=== PATIENT | male | born 1995 | race African-American/Black ===

== ENCOUNTER 2016-11-20 19:53 | Emergency (ER) | payer OTHER ==
[2016-11-20] MEDS ORDERED: oxyCODONE/Acetamin 5/325 MG* TAB PO ONE (20:10)
--- NOTE | 2016-11-20 20:28 | RAD ---
INDICATION: Fall. Intracranial injury COMPARISON: None TECHNIQUE: Noncontrast axial source images were acquired from the skull base to the vertex. FINDINGS: Ventricles/sulci: The ventricles and cisterns are normal in size and configuration for age. Brain parenchyma: There is no focal parenchymal finding, evidence of intracranial mass, or intracranial mass effect. Intracranial hemorrhage:None. Extra-axial spaces: There are no abnormal extra axial fluid collections or evidence of extra-axial mass. Calvarium: There is no calvarial fracture or other calvarial abnormality. Scalp: There is a right parietal scalp hematoma. Paranasal sinuses/mastoid: The paranasal sinuses and mastoid air cells are clear. Other: None. IMPRESSION: No acute intracranial findings.
--- NOTE | 2016-11-20 20:29 | RAD ---
INDICATION: Fall. Neck pain COMPARISON: None TECHNIQUE: Noncontrast axial source images was performed from the skull base to the thoracic inlet. Coronal and and sagittal reformatted images were generated. FINDINGS: Vertebrae: There is no fracture or acute focal bony lesion. Alignment: The craniocervical junction appears normal. The cervical vertebrae are normally aligned. Central Canal: There are no significant CT abnormalities of the central canal or foramina. MR imaging is a more sensitive method to evaluate the canal and foramina. Intervertebral disc spaces: The disc spaces are maintained. Brain: The visualized brain appears unremarkable. Soft tissues: The visualized soft tissue elements of the neck are unremarkable. The prevertebral soft tissues appear normal. The lung apices are clear. IMPRESSION: NEGATIVE EXAMINATION.
--- NOTE | 2016-11-20 21:21 | RAD ---
INDICATION: Right shoulder injury COMPARISON: None TECHNIQUE: Routine frontal and Y views were obtained. FINDINGS: The bony structures, joint spaces, and soft tissues are normal for age. IMPRESSION: NEGATIVE EXAMINATION.
--- NOTE | 2016-11-20 21:21 | RAD ---
INDICATION: Right forearm injury COMPARISON: None TECHNIQUE: AP and lateral views were obtained. FINDINGS: The bony structures, joint spaces, and soft tissues are normal for age. IMPRESSION: NEGATIVE EXAMINATION
--- NOTE | 2016-11-20 21:21 | RAD ---
INDICATION: Right elbow injury COMPARISON: None TECHNIQUE: AP, lateral, and oblique views were obtained. FINDINGS: The bony structures, joint spaces, and soft tissues are normal for age. IMPRESSION: NEGATIVE EXAMINATION.
[2016-11-20 22:00] VITALS: BP 140/71
--- NOTE | 2016-11-20 22:30 | ED ---
Head Injury - HPI Summary HPI Summary: Patient arrives with 2 guards from [facility] after slipping and falling in the shower and hitting his head, back and right arm. On arrival he is in a cervical spine collar and right arm splint. He notes to neck pain and head pain as well as right shoulder, elbow and forearm pain on arrival. He denies LOC, memory loss or confusion. Pain is 9/10 and discrete to his right arm, his posterior spine and head. He does not know exactly where he hit his head. He thinks he fell onto his elbow. Denies known abrasions, lacerations or other open wounds. Denies previous injury to the neck, back and arm. Patient denies other complaints. Denies other health history. Takes no medications. - History Of Current Complaint Chief Complaint: EDGeneral Stated Complaint: FALL Time Seen by Provider: 11/20/16 20:00 Hx Obtained From: Patient Mechanism Of Injury: Fall From A Standing Position Onset/Duration: Started Hours Ago Onset of Pain: Immediate Severity Currently: Moderate Severity Initially: Moderate Pain Intensity: 8 Pain Scale Used: 0-10 Numeric Location of Head Injury: Other: - unknown Character: Sharp, Throbbing Aggravating Factor(s): Movement Alleviating Factor(s): Rest Associated Signs And Symptoms: Neck Pain - Risk Factors SDH Risk Factor: Male Risk Factors For Cervical Spine Injury: Posterior Midline Cervical Spine Tenderness - over C2 - Allergies/Home Medications Allergies/Adverse Reactions: Allergies Allergy/AdvReac Type Severity Reaction Status Date / Time No Known Allergies Allergy Verified 11/20/16 20:05 PMH/Surg Hx/FS Hx/Imm Hx Previously Healthy: Yes - Immunization History Immunizations Up to Date: Unable to Obtain/Confirm Infectious Disease History: No Infectious Disease History: Denies: Traveled Outside the [place] in Last 30 Days - Social History Occupation: Unemployed Lives: Alone - correctional facility Alcohol Use: None Hx Substance Use: Yes Substance Use Type: Reports: Marijuana Hx Tobacco Use: No Smoking Status (MU): Never Smoked Tobacco Do You Chew or Dip Tobacco: No Have You Chewed or Dipped Tobacco in the LAST YEAR: No Review of Systems Constitutional: Negative ENT: Negative Cardiovascular: Negative Respiratory: Negative Positive: no symptoms reported, see HPI Positive: Arthralgia, Myalgia - pain on palpation over posterior midline spine at C2-C4, pain over right shoulder with passive abduction and adduction of joint , neer test positive, empty can positive, right elbow with pain during flexion and extension. Pain on palpation over right forearm. No pain on palpation over wrist. Skin: Negative Positive: Headache Psychological: Normal All Other Systems Reviewed And Are Negative: Yes Physical Exam Triage Information Reviewed: Yes Vital Signs On Initial Exam: Initial Vitals Temp Pulse Resp BP Pulse Ox 98.6 F 93 22 143/65 96 11/20/16 19:55 11/20/16 19:55 11/20/16 19:55 11/20/16 19:55 11/20/16 19:55 Vital Signs Reviewed: Yes Appearance: Positive: Well-Appearing, Pain Distress Skin: Positive: Warm Eyes: Positive: EOMI, KAYLEIGH Neck: Positive: Nontender, No Lymphadenopathy Cardiovascular: Positive: Normal, RRR Musculoskeletal: Positive: Other - pain on palpation over posterior midline spine at C2-C4, pain over right shoulder with passive abduction and adduction of joint, neer test positive, empty can positive, right elbow with pain during flexion and extension. Pain on palpation over right forearm. No pain on palpation over wrist. Neurological: Positive: Sensory/Motor Intact, Normal Gait, Speech Normal Psychiatric: Positive: Normal AVPU Assessment: Alert - Obi Coma Scale Coma Scale Total: 15 Diagnostics - Vital Signs Vital Signs Temp Pulse Resp BP Pulse Ox 11/20/16 22:00 99.1 F 83 20 140/71 96 11/20/16 20:01 98.6 F 89 18 143/65 97 11/20/16 19:55 98.6 F 93 22 143/65 96 - Laboratory Lab Statement: Any lab studies that have been ordered have been reviewed, and results considered in the medical decision making process. Head Injury Course/Dx Course Of Treatment: CT brain, CT cervical spine, Xray shoulder, Xray elbow, Xray forearm all negative. 10mg Percoset given. Patient feeling better on discharge. Elbow still painful. Provider encouraged Ibuprofen 600mg three times daily with meals. Patient concerned if pain does not dissipate, how to receive better imaging. Provider communicated to patient if symptoms persist or do not improve, able to come back to ED for further evaluation, but pain will persist for several days to a few weeks d/t contusion on the elbow. Patient voiced understanding. - Diagnoses Differential Diagnosis/HQI/PQRI: Cervical Sprain, Concussion Without LOC, Contusion Provider Diagnoses: Contusion, elbow, with forearm, Head injury Discharge - Discharge Plan Condition: Stable Disposition: HOME Prescriptions: Ibuprofen TAB* [Motrin TAB* 600 MG] 600 mg PO Q8H PRN #24 tab MDD 3 PRN Reason: Pain Patient Education Materials: Contusion in Adults (ED) Referrals: No Primary Care Phys,NOPCP [Primary Care Provider] - Additional Instructions: Take 600mg Ibuprofen three times daily with meals as needed for pain and inflammation. You have been diagnosed with a contusion. All imaging taken at this time was negative for a fracture or any acute findings. If symptoms do not improve in 1 week, come back to ED for further imaging or see you primary care physician. You will be sore for awhile as this may take awhile to heal.
== END 2016-11-20 22:00 | disposition home or self-care (01) ==
LOC: ED 19:53
DX: S50.01XA Contusion of right elbow, initial encounter (principal); S09.90XA Unspecified injury of head, initial encounter; S50.11XA Contusion of right forearm, initial encounter; R51 Headache; W19.XXXA Unspecified fall, initial encounter; Y93.9 Activity, unspecified; Y92.9 Unspecified place or not applicable
CPT/HCPCS: 70450; 72125; 99282; A9270-GY

== ENCOUNTER 2016-11-21 23:54 | Emergency (ER) | payer OTHER ==
[2016-11-22] MEDS ORDERED: Ketorolac INJ* 60 MG/2 ML VIAL IM ONE (00:46)
--- NOTE | 2016-11-22 00:47 | ED ---
Kayode Miranda Adam, scribed for Juwan Dill MD on 11/22/16 at 0028 . HPI Chest Pain - HPI Summary HPI Summary: Pt is a 21 year old male brought in from a correctional facility with CP. He describes it as a pressure that set on at 22:00. He has not taken anything for the pain. The pt slipped and fell in the shower yesterday and was seen here in the ED shortly afterwards, complaining of pain in his head, neck, shoulder, elbow, and forearm. CT's of his brain and C-spine and X-Rays of his shoulder, elbow, and forearm were all negative. - History of Current Complaint Chief Complaint: EDChestPainROMI Hx Obtained From: Patient Onset/Duration: Started Days Ago, Traumatic, Still Present Timing: Constant Initial Severity: Moderate Current Severity: Moderate Pain Intensity: 5 Pain Scale Used: 0-10 Numeric Chest Pain Location: Discrete at: - Chest, throat, right elbow Aggravating Factor(s): Nothing Alleviating Factor(s): Nothing Associated Signs and Symptoms: Positive: Shortness of Breath - Allergy/Home Medications Allergies/Adverse Reactions: Allergies Allergy/AdvReac Type Severity Reaction Status Date / Time No Known Allergies Allergy Verified 11/20/16 20:05 PMH/Surg Hx/FS Hx/Imm Hx Previously Healthy: Yes - Surgical History Surgery Procedure, Year, and Place: Right metacarpal surgery Infectious Disease History: No Infectious Disease History: Denies: Traveled Outside the [place] in Last 30 Days - Family History Known Family History: Positive: Diabetes - Grandfather, Other - Cancer ( grandfather) - Social History Occupation: Unemployed Lives: Alone - [facility] Alcohol Use: None Hx Substance Use: Yes Substance Use Type: Reports: Marijuana Hx Tobacco Use: No Smoking Status (MU): Never Smoked Tobacco Review of Systems Positive: Chest Pain Positive: Nausea Positive: Arthralgia - Right elbow, Other - Neck pain All Other Systems Reviewed And Are Negative: Yes Physical Exam Triage Information Reviewed: Yes Vital Signs On Initial Exam: Initial Vitals Temp Pulse Resp BP Pulse Ox 99.2 F 68 16 121/79 97 11/22/16 00:13 11/22/16 00:13 11/22/16 00:13 11/22/16 00:13 11/22/16 00:13 Vital Signs Reviewed: Yes Appearance: Positive: Well-Appearing, Pain Distress - mild Skin: Positive: Warm Eyes: Positive: KAYLEIGH ENT: Positive: Hearing grossly normal Neck: Positive: Supple Respiratory/Lung Sounds: Positive: Breath Sounds Present, Other - no cwt tenderness Cardiovascular: Positive: RRR Abdomen Description: Positive: Nontender, Soft Bowel Sounds: Positive: Present Musculoskeletal: Positive: Strength/ROM Intact Neurological: Positive: Sensory/Motor Intact Diagnostics - Vital Signs Vital Signs Temp Pulse Resp BP Pulse Ox 11/22/16 00:13 99.2 F 68 16 121/79 97 - Laboratory Lab Statement: Any lab studies that have been ordered have been reviewed, and results considered in the medical decision making process. - Radiology CXR Xray Interpretation: No Acute Changes Radiology Interpretation Completed By: ED Physician - EKG 00:20 Cardiac Rate: NL - 67 BPM EKG Rhythm: Sinus Rhythm - Normal Chest Pain Course/Dx - Diagnoses Provider Diagnoses: Chest pain Discharge - Discharge Plan Condition: Stable Disposition: HOME Patient Education Materials: Chest Pain (ED) Referrals: No Primary Care Phys,NOPCP [Primary Care Provider] - The documentation as recorded by the Kayode flores Adam accurately reflects the service I personally performed and the decisions made by Fuentes clements David, MD.
[2016-11-22] MEDS ORDERED: Al Hydrox/Mg Hydrox/Simet LIQ* 30 ML UDC PO ONE (01:07)
[2016-11-22] MEDS ORDERED: Lidocaine 2% VISCOUS* 15 ML UDC PO ONE (01:07)
[2016-11-22] MEDS ORDERED: Lidocaine 2% VISCOUS* 15 ML UDC ONE (01:09)
[2016-11-22] MEDS ORDERED: Al Hydrox/Mg Hydrox/Simet LIQ* 30 ML UDC ONE (01:09)
[2016-11-22 02:10] VITALS: BP 135/70
--- NOTE | 2016-11-22 08:08 | RAD ---
INDICATION: Chest pain. COMPARISON: There are no prior studies available for comparison. TECHNIQUE: A portable view of the chest was obtained. FINDINGS: Cardiac and mediastinal contours appear to be within normal limits. The lungs are clear. No pleural effusion is seen. IMPRESSION: NO EVIDENCE FOR ACUTE DISEASE.
== END 2016-11-22 02:11 | disposition home or self-care (01) ==
LOC: ED 23:54
DX: R07.9 Chest pain, unspecified (principal); M54.2 Cervicalgia; R06.02 Shortness of breath; R11.0 Nausea; M25.521 Pain in right elbow
CPT/HCPCS: 71010; 93005; 96372; 99282; A9270-GY; J1885

== ENCOUNTER 2016-11-22 10:35 | Emergency (ER) | payer OTHER ==
[2016-11-22 10:39] VITALS: BP 129/73
[2016-11-22] MEDS ORDERED: oxyCODONE/Acetamin 5/325 MG* TAB PO ONE ×2 (12:18→14:30)
--- NOTE | 2016-11-22 13:43 | RAD ---
HISTORY: Right MB swelling COMPARISONS: None relevant TECHNIQUE: Multiple transverse and longitudinal ultrasound images were obtained of the right upper extremity from the level of the internal jugular vein inferiorly through to the infra-cubital veins using grayscale, color Doppler, and spectral Doppler imaging with and without compression and with augmentation. Comparison images were obtained of the contralateral internal jugular vein and subclavian vein. FINDINGS: VEINS: The venous system of the right upper extremity is compressible throughout its course, with normal flow on color Doppler imaging and normal response to augmentation on spectral Doppler imaging. SOFT TISSUES: There is subfalcine is edema with a small amount of loculated fluid within the right elbow OTHER FINDINGS: None. IMPRESSION: 1. NO RIGHT UPPER EXTREMITY DEEP VEIN THROMBOSIS. 2. SUBCUTANEOUS EDEMA WITH SMALL AMOUNT OF FLUID ALONG THE ELBOW WHICH MAY INDICATE OLECRANON BURSITIS IN THE CORRECT CLINICAL SETTING
--- NOTE | 2016-11-22 14:04 | ED ---
Upper Extremity Pain - HPI Summary HPI Summary: 21 male presents with 2 guards from [address] [place] [address] with complaints of right elbow pain, swelling and redness. Patient states he was here on Sunday after falling and hitting his elbow. He had multiple imaging studies of back, neck, shoulder, elbow and forearm which were all negative. He was also here last night 11/21/16 with complaint of chest pain and discharged as examination was normal. Patient returns again due to the redness, swelling and pain of his elbow that has increasingly been getting worse. He has been taking 600mg ibuprofen without any relief. He is able to move his elbow however it causes him pain. Denies fever/chills. He gonzalo a line around the redness earlier today to keep track. - History of Current Complaint Chief Complaint: EDExtremityUpper Stated Complaint: RT ELBOW COMPLAINT Time Seen by Provider: 11/22/16 11:14 Hx Obtained From: Patient Mechanism Of Injury: Blunt Trauma, Fall From Height Of: - standing on 11/20 Onset/Duration: Started Days Ago, Traumatic, Worse Since Timing: Constant Severity Initially: Mild Severity Currently: Moderate Pain Location: Elbow, Forearm Character: Aching, Throbbing Aggravating Factor(s): Movement Alleviating Factor(s): Rest Associated Signs & Symptoms: Positive: Swelling, Redness, Numbness/Tingling Related History: Dominant Hand Right - Allergies/Home Medications Allergies/Adverse Reactions: Allergies Allergy/AdvReac Type Severity Reaction Status Date / Time No Known Allergies Allergy Verified 11/20/16 20:05 PMH/Surg Hx/FS Hx/Imm Hx Endocrine/Hematology History: Denies: Hx Diabetes Cardiovascular History: Denies: Hx Hypertension Respiratory History: Denies: Hx Asthma - Surgical History Surgery Procedure, Year, and Place: Right metacarpal surgery Infectious Disease History: No Infectious Disease History: Denies: Traveled Outside the [place] in Last 30 Days - Family History Known Family History: Positive: None - Per pt, Diabetes - Grandfather, Other - Cancer (grandfather) - Social History Alcohol Use: None Hx Substance Use: Yes Substance Use Type: Reports: Marijuana Hx Tobacco Use: No Smoking Status (MU): Never Smoked Tobacco Review of Systems Constitutional: Negative Eyes: Negative ENT: Negative Positive: Chest Pain Respiratory: Negative Gastrointestinal: Negative Genitourinary: Negative Positive: Arthralgia, Myalgia, Decreased ROM, Edema - right elbow Positive: Other - redness Neurological: Negative Psychological: Normal All Other Systems Reviewed And Are Negative: Yes Physical Exam Triage Information Reviewed: Yes Vital Signs On Initial Exam: Initial Vitals Temp Pulse Resp BP Pulse Ox 98.6 F 80 18 129/73 97 11/22/16 10:36 11/22/16 10:36 11/22/16 10:36 11/22/16 10:36 11/22/16 10:36 Vital Signs Reviewed: Yes Appearance: Positive: Well-Appearing, Well-Nourished, Pain Distress - mild, worse with movement Skin: Positive: Warm, Skin Color Reflects Adequate Perfusion, Dry, Erythema @ - and significant edema of right elbow and forearm, warm to touch. skin intact and no discharge. painful on palpation. currently afebrile Head/Face: Positive: Normal Head/Face Inspection Eyes: Positive: Conjunctiva Clear ENT: Positive: Normal ENT inspection, Hearing grossly normal Dental: Negative: Cervical Lymphadenopathy Neck: Positive: Supple, Nontender, No Lymphadenopathy Respiratory/Lung Sounds: Positive: Clear to Auscultation, Breath Sounds Present Cardiovascular: Positive: Normal, RRR, Pulses are Symmetrical in both Upper and Lower Extremities. Negative: Leg Edema Left, Leg Edema Right Abdomen Description: Positive: Nontender, No Organomegaly, Soft Bowel Sounds: Positive: Present Musculoskeletal: Positive: Limited @ - ROM at right elbow with flexion and extension due to pain. passive ROM experiencing pain with flexion and extension as well., Pain @ - pain on palpation of right elbow, very swollen hard to rule out bursitis., Edema Right - erythema and warmth, Other - sensation and skin intact. Neurological: Positive: Normal, Sensory/Motor Intact, Alert, Oriented to Person Place, Time, CN Intact II-III, Reflexes Intact, NV Bundle Intact Distally, Normal Gait Psychiatric: Positive: Normal AVPU Assessment: Alert Diagnostics - Vital Signs Vital Signs Temp Pulse Resp BP Pulse Ox 11/22/16 10:36 98.6 F 80 18 129/73 97 - Laboratory Lab Statement: Any lab studies that have been ordered have been reviewed, and results considered in the medical decision making process. - Ultrasound No standard instances Ultrasound Interpretation: Positive (See Comments) - 1. NO RIGHT UPPER EXTREMITY DEEP VEIN THROMBOSIS. 2. SUBCUTANEOUS EDEMA WITH SMALL AMOUNT OF FLUID ALONG THE ELBOW WHICH MAY INDICATE OLECRANON BURSITIS IN THE CORRECT CLINICAL SETTING Ultrasound Interpretation Completed By: Radiologist Re-Evaluation - Re-Evaluation First Eval Re-Evaluation Time: 13:30 Change: Improved Comment: pain has improved after administration of percocet. Course/Dx - Course Course Of Treatment: spoke with dr fortune who agreed with plan of compression, elevation, keflex and NSAID's and follow up in her office tomorrow 11/22/16. given first dose of keflex while in ED. major be given pain management and keflex for the first 24 hours. continue keflex for 10 days, [facility] Spoke with Dr Jennifer Reddy the physician at [facility]. She is aware of patient diagnosis and course of treatment. x-ray was not repeated at this time due to a negative x-ray 2 days ago and due to PE findings suggestive of other etiology. - Diagnoses Differential Diagnosis/HQI/PQRI: Positive: Arthritis, Bursitis, Hematoma, Septic Arthritis, Strain, Sprain Provider Diagnoses: Olecranon bursitis of right elbow - Physician Notifications Discussed Care Of Patient With: Dr Fortune Time Discussed With Above Provider: 14:25 Instructed by Provider To: Have Pt Call For Appt. Discharge - Discharge Plan Condition: Stable Disposition: HOME Patient Education Materials: Elbow Bursitis (ED), Elbow Bursitis Exercises (GEN ) Referrals: Vita Fortune MD [Medical Doctor] - Additional Instructions: Please continue taking the Ibuprofen 600mg every 6 hours for inflammation. Take the antibiotic (Keflex 500mg BID) one tab every 12 hours. Recommend eating maori yogurt while taking this medication. Take pain medication as needed every 6-8 hours. Elevate the elbow and use the cadence bandage to apply compression and decrease swelling. Follow up with Dr Fortune tomorrow in her office for further evaluation and to ensure improvement. If you develop fever/chills, red streaks or difficulty breathing please return.
[2016-11-22] MEDS ORDERED: Cephalexin CAP* 500 MG PO ONE ×2 (14:31→14:32)
== END 2016-11-22 14:51 | disposition home or self-care (01) ==
LOC: ED 10:35
DX: M70.21 Olecranon bursitis, right elbow (principal); F12.90 Cannabis use, unspecified, uncomplicated
CPT/HCPCS: 99282; A9270-GY

== ENCOUNTER 2016-12-01 18:07 | Emergency (ER) | payer OTHER ==
[2016-12-01] MEDS ORDERED: Ketorolac INJ* 60 MG/2 ML VIAL IM ONE (18:36)
[2016-12-01] MEDS ORDERED: Diazepam TAB(*) 5 MG PO ONE (18:36)
[2016-12-01] MEDS ORDERED: oxyCODONE/Acetamin 5/325 MG* TAB PO ONE (18:37)
--- NOTE | 2016-12-01 18:42 | ED ---
Back Pain - HPI Summary HPI Summary: 21M presents with back injury 2 weeks ago when slipped in shower. He was diagnosed with sciatica pain in the [facility]. He states pain is greatest on right side. He did not have imaging of his lower back while he was here two weeks ago. He denies any instability when he walks. He denies any saddle paresthesia or loss of bowel or bladder. He states that occasionally the pain travels down his right leg. - History of Current Complaint Chief Complaint: EDBackInjuryPain Stated Complaint: BACK PAIN Time Seen by Provider: 12/01/16 18:24 Pain Intensity: 10 - Allergies/Home Medications Allergies/Adverse Reactions: Allergies Allergy/AdvReac Type Severity Reaction Status Date / Time No Known Allergies Allergy Verified 11/20/16 20:05 PMH/Surg Hx/FS Hx/Imm Hx Endocrine/Hematology History: Denies: Hx Diabetes Cardiovascular History: Denies: Hx Hypertension Respiratory History: Denies: Hx Asthma - Surgical History Surgery Procedure, Year, and Place: Right metacarpal surgery Infectious Disease History: No Infectious Disease History: Denies: Traveled Outside the [place] in Last 30 Days - Family History Known Family History: Positive: None - Per pt, Diabetes - Grandfather, Other - Cancer (grandfather) - Social History Alcohol Use: None Hx Substance Use: Yes Substance Use Type: Reports: Marijuana Hx Tobacco Use: No Smoking Status (MU): Never Smoked Tobacco Review of Systems Negative: Fever Negative: Chest Pain Negative: Shortness Of Breath Positive: Myalgia - back pain All Other Systems Reviewed And Are Negative: Yes Physical Exam Triage Information Reviewed: Yes Vital Signs On Initial Exam: Initial Vitals Temp Pulse Resp BP Pulse Ox 98.4 F 72 16 126/96 98 12/01/16 18:22 12/01/16 18:22 12/01/16 18:22 12/01/16 18:22 12/01/16 18:22 Vital Signs Reviewed: Yes Appearance: Positive: Well-Appearing Skin: Positive: Warm, Dry Head/Face: Positive: Normal Head/Face Inspection Eyes: Positive: Normal, Conjunctiva Clear ENT: Positive: Normal ENT inspection, Pharynx normal, TMs normal Respiratory/Lung Sounds: Positive: Clear to Auscultation, Breath Sounds Present Cardiovascular: Positive: Normal, RRR Musculoskeletal: Positive: Limited @ - back due to pain, Other - neg SLR, tender to palpation of right side of lower back, good pulses Diagnostics - Vital Signs Vital Signs Temp Pulse Resp BP Pulse Ox 12/01/16 18:22 98.4 F 72 16 126/96 98 - Laboratory Lab Statement: Any lab studies that have been ordered have been reviewed, and results considered in the medical decision making process. - CT back CT Interpretation: No Acute Changes - IMPRESSION: 1. NO EVIDENCE FOR FRACTURE. 2. MILD DEGENERATIVE DISC DISEASE, NO SIGNIFICANT SPINAL CANAL OR NEURAL FORAMINAL NARROWING IS SEEN. CT Interpretation Completed By: Radiologist Back Pain Course/Dx - Course Course Of Treatment: 21M presents with lower back pain since slipping in shower a week ago. was seen here and no imaging of back was done. was diagnosed with [facility]a [facility] in [facility]. tender on right side of lower back. CT back no fracture. will treat with muscle relaxers and course of prednisone. patient understands and agree with plan - Diagnoses Differential Diagnosis/HQI/PQRI: Positive: Herniated Disc, Strain, Sprain Provider Diagnoses: Back pain Discharge - Discharge Plan Condition: Good Disposition: HOME Prescriptions: Cyclobenzaprine TAB* [Flexeril 10 MG TAB*] 10 mg PO TID PRN #9 tab PRN Reason: Pain Methylprednisolone [Medrol Dosepak 4 MG*] 4 mg PO .SEE KALA INSTRUCTION #1 packet Patient Education Materials: Back Pain (ED) Referrals: No Primary Care Phys,NOPCP [Primary Care Provider] - Additional Instructions: Take muscle relaxers three times a day for 3 days Take steroid as directed on packet Use ibuprofen or Tylenol for pain every 6 hours ice/heat area, move as much as possible Return to ED if unable to ambulate or develop any new or worsening symptoms
--- NOTE | 2016-12-01 19:04 | RAD ---
INDICATION: Trauma, worsening back pain. COMPARISON: There are no prior studies available for comparison. TECHNIQUE: Contiguous axial sections were obtained beginning above the T12 vertebra and continuing through the L5-S1 disc space. Images were reconstructed in the sagittal and coronal planes. FINDINGS: The vertebra are in normal alignment. No fracture is seen. At the L3-L4 level there is a mild broad-based disc bulge. No significant spinal canal or neural foraminal narrowing is present. At the L4-L5 level there is a mild broad-based disc bulge and mild hypertrophic changes within the facet joints. No significant spinal canal or neural foraminal narrowing is seen. At the L5-S1 level there is also a mild broad-based disc bulge and mild hypertrophic changes within the facet joints. No significant spinal canal or neural foraminal narrowing is present. IMPRESSION: 1. NO EVIDENCE FOR FRACTURE. 2. MILD DEGENERATIVE DISC DISEASE, NO SIGNIFICANT SPINAL CANAL OR NEURAL FORAMINAL NARROWING IS SEEN.
[2016-12-01] MEDS ORDERED: Diazepam TAB(*) 5 MG ONE (19:16)
[2016-12-01 19:40] VITALS: BP 119/66
== END 2016-12-01 19:39 | disposition home or self-care (01) ==
LOC: ED 18:07
DX: M54.9 Dorsalgia, unspecified (principal); M51.36 Other intervertebral disc degeneration, lumbar region
CPT/HCPCS: 72131; 99282; A9270-GY; J1885

== ENCOUNTER 2017-01-12 20:17 | Emergency (ER) | payer OTHER ==
[2017-01-12 20:28] VITALS: BP 139/81
[2017-01-12] MEDS ORDERED: Cyclobenzaprine TAB* 10 MG PO ONE (21:58)
--- NOTE | 2017-01-12 22:19 | ED ---
Marta Miranda Rebecca, scribed for Nubia Harris MD on 01/12/17 at 2116 . Back Pain - HPI Summary HPI Summary: Pt is a 21 y/ M who presents to ED from [facility] c/o acute on chronic lumbar back pain. Pain began suddenly today at approximately 1930 and has been constant since onset. Reports that he was unplugging a device from an outlet when it "exploded," triggering his sx. Pain is located in the lumbar region with radiation to the buttocks. Pain is currently severe, ranked 10/10 and characterized as sharp. Sx aggravated and alleviated by nothing. Has been treating pain with tylenol and ibuprofen, which is currently ineffective. Additionally c/o dorsal R hand tingling. Denies neck pain. PMHx back problems - 3 bulging discs secondary to a fall on November 20, diagnosed using an MRi 1.5 months ago, per pt. PSHx R metacarpal surgery. No SHx IVDA or PMHx DM. Daily mediations consist of Zoloft, Benadryl and Melatonin. - History of Current Complaint Chief Complaint: EDBackInjuryPain Stated Complaint: BACK PAIN Time Seen by Provider: 01/12/17 20:49 Hx Obtained From: Patient Onset/Duration: Sudden Onset - 1929, Still Present Onset/Duration: Started Hours Ago - 2 hours ago, Still Present Timing: Constant Back Pain Location: Is Discrete @ - Lumbar, Radiates To - buttocks Severity Initially: Moderate Severity Currently: Severe Pain Intensity: 10 Pain Scale Used: 0-10 Numeric Character: Sharp Aggravating Symptom(s): Nothing Alleviating Symptom(s): Nothing Associated Signs And Symptoms: Positive: Tingling - R hand Related History: Previous Back Injury - Fall on November 20 - Allergies/Home Medications Allergies/Adverse Reactions: Allergies Allergy/AdvReac Type Severity Reaction Status Date / Time No Known Allergies Allergy Verified 11/20/16 20:05 PMH/Surg Hx/FS Hx/Imm Hx Endocrine/Hematology History: Denies: Hx Diabetes Cardiovascular History: Denies: Hx Hypertension Respiratory History: Denies: Hx Asthma Musculoskeletal History: Reports: Hx Back Problems - Surgical History Surgery Procedure, Year, and Place: Right metacarpal surgery Infectious Disease History: Yes Infectious Disease History: Denies: Traveled Outside the [place] in Last 30 Days - Family History Known Family History: Positive: Diabetes - Grandfather, Other - Cancer ( grandfather) - Social History Alcohol Use: None Hx Substance Use: Yes Substance Use Type: Reports: None Hx Tobacco Use: No Smoking Status (MU): Never Smoked Tobacco Review of Systems Positive: Other Positive: Arthralgia - Lumbar back pain; Denies neck pain Neurological: Other - R hand tingling All Other Systems Reviewed And Are Negative: Yes Physical Exam - Summary Physical Exam Summary: General: Well appearing, no pain distress Skin: Warm, Skin Color Reflects Adequate Perfusion, Dry Eyes: EOMI, KAYLEIGH ENT: Pharynx normal, TMs normal Neck: Supple, nontender and without discomfort. Respiratory: CTA, breath sounds present, no rhonchi, no wheezes, no rales Cardiovascular: RRR, no murmur, no rub, no gallop Abdomen: Soft, nontender, Non-distended, no guarding, no rebound Bowel: Present Musculoskeletal: GAY, No edema. L5, S1 and mild paraspinal tenderness. DTRs normal. Normal strength. Neuro: Sensory/motor intact, A&Ox3, CN intact 2-12. Describing mild radial nerve discomfort and tingling over the 4th and 5th digits over the dorsum of the R hand. Psych: Affect/mood appropriate Triage Information Reviewed: Yes Vital Signs On Initial Exam: Initial Vitals Temp Pulse Resp BP Pulse Ox 99.2 F 90 20 139/81 95 01/12/17 20:22 01/12/17 20:22 01/12/17 20:22 01/12/17 20:22 01/12/17 20:22 Vital Signs Reviewed: Yes - Obi Coma Scale Coma Scale Total: 15 Diagnostics - Vital Signs Vital Signs Temp Pulse Resp BP Pulse Ox 01/12/17 20:22 99.2 F 90 20 139/81 95 - Laboratory Lab Statement: Any lab studies that have been ordered have been reviewed, and results considered in the medical decision making process. - EKG 2050 Cardiac Rate: NL - 73 bpm EKG Rhythm: Sinus Rhythm ST Segment: Normal Back Pain Course/Dx - Course Course Of Treatment: 21 yo male s/p a game exploding in his hand with pins and needles over hand in ulnar distribution (normal dtr's) no neck pain and low back pain with normal neuro exam. ekg also normal. Pt started on muscle relaxer and medrol dose pack - Diagnoses Provider Diagnoses: Radicular neuropathy, Back pain Discharge - Discharge Plan Condition: Stable Disposition: HOME Prescriptions: Methylprednisolone [Medrol Dosepak 4 MG*] 0 mg PO .SEE [employer] INSTRUCTION #1 packet The documentation as recorded by the Marta flores Rebecca accurately reflects the service I personally performed and the decisions made by me, Nubia Harris MD.
== END 2017-01-12 22:37 | disposition home or self-care (01) ==
LOC: ED 20:17
DX: M54.9 Dorsalgia, unspecified (principal); M54.10 Radiculopathy, site unspecified; M54.5 Low back pain
CPT/HCPCS: 93005; 99282; A9270-GY